=== PATIENT | male | born 1990 | race Caucasian/White ===

== ENCOUNTER 2018-08-21 13:59 | Emergency (ER) | payer OTHER ==
[~2018-08-21] VITALS: Ht 177.8 cm; Wt 63.5 kg
[2018-08-21 14:23] LABS: URINE BILIRUBIN NEGATIVE (Negative); URINE BLOOD NEGATIVE (Negative); URINE CLARITY CLEAR; URINE COLOR YELLOW; URINE GLUCOSE-RANDOM NEGATIVE (Negative); URINE KETONES NEGATIVE (Negative); URINE LEUKOCYTES-REFLEX NEGATIVE (Negative); URINE NITRITE-REFLEX NEGATIVE (Negative); URINE PROTEIN NEGATIVE (Negative); URINE SPECIFIC GRAVITY 1.025 (1.005-1.030); URINE UROBILINOGEN 0.2 E.U./dl (0.2-1.0)
[2018-08-21 15:16] LABS: ABSOLUTE BASOPHILS 0.1 thou/uL (0.0-0.2); ABSOLUTE EOSINOPHILS 0.1 thou/uL (0.0-0.7); ABSOLUTE LYMPHOCYTES 1.7 thou/uL (0.8-5.3); ABSOLUTE MONOCYTES 0.5 thou/uL (0.0-1.2); ABSOLUTE NEUTROPHILS 4.5 thou/uL (1.6-8.1); BASOPHILS 0.9 %; EOSINOPHILS 1.2 %; HEMOGLOBIN 13.4 gm/dL (14.0-18.0); LYMPHOCYTES 25.6 %; MCH 29.6 pg (26.0-34.0); MCHC 34.4 g/dL (28.0-37.0); MCV 86.1 fL (80.0-100.0); MONOCYTES 6.8 %; MPV 8.4 fl. (7.2-11.1); NUCLEATED RBCS 0 /100WBC; PLATELET COUNT* 260 thou/uL (150-400); POLYS 65.5 %; RBC 4.53 mil/uL (4.50-6.00); RDW-CV 14.3 % (10.5-14.5); WBC 6.8 thou/uL (4.0-11.0)
[2018-08-21 15:25] LABS: ALBUMIN 3.4 g/dL (3.4-5.0); CALCIUM 8.9 mg/dL (8.5-10.1); CREATININE 0.7 mg/dL (0.6-1.3); POTASSIUM 4.5 mmol/L (3.5-5.1); TOTAL BILIRUBIN 0.2 mg/dL (<0.1-1.0); TOTAL PROTEIN 7.2 g/dL (6.4-8.2)
[2018-08-21 15:37] VITALS: BP 114/55
== END 2018-08-21 15:38 | disposition home or self-care (01) ==
LOC: M.ERS 13:59
PROVIDERS: Nurse Practitioner Family
DX: R10.31 Right lower quadrant pain (principal); F17.210 Nicotine dependence, cigarettes, uncomplicated